=== PATIENT | female | born 1960 | race African-American/Black ===

== ENCOUNTER 2020-02-13 11:56 | Emergency (ER) | payer OTHER ==
[~2020-02-13] VITALS: Ht 167.6 cm; Wt 69.4 kg
[2020-02-13] MEDS ORDERED: NEURONTIN 400M400 M2 PO (12:20)
[2020-02-13] MEDS ORDERED: FLEXERIL PO (12:21)
[2020-02-13] MEDS ORDERED: MIRALAX119 GM PO (12:22)
[2020-02-13] MEDS ORDERED: GNP SENNA PLUS1 EACH PO (12:22)
[2020-02-13] MEDS ORDERED: NORVASC 2.5 MG2.5 M1 PO (12:22)
[2020-02-13] MEDS ORDERED: ADVIL200 M3 PO (12:22)
[2020-02-13] MEDS ORDERED: SINGULAIR 10 MG10 MG PO (12:23)
[2020-02-13] MEDS ORDERED: SUPER THERAVIT1 EACH PO (12:23)
[2020-02-13] MEDS ORDERED: ADULT ASPIRIN R81 MG PO (12:24)
[2020-02-13] MEDS ORDERED: VITAMIN D350 MC3 PO (12:25)
[2020-02-13] MEDS ORDERED: ZETIA10 MG PO (12:25)
[2020-02-13] MEDS ORDERED: PRILOSEC OTC20 MG PO (12:26)
[2020-02-13] MEDS ORDERED: VALIUM5 MG PO (13:07)
[2020-02-13] MEDS ORDERED: PREDNISONE 10 M10 MG PO (13:07)
[2020-02-13 13:44] VITALS: BP 114/72
== END 2020-02-13 13:50 | disposition home or self-care (01) ==
LOC: ER 11:56
DX: M70.62 Trochanteric bursitis, left hip (principal); M54.32 Sciatica, left side; I10 Essential (primary) hypertension; E78.5 Hyperlipidemia, unspecified; Z79.899 Other long term (current) drug therapy; Y93.89 Activity, other specified